=== PATIENT | female | born 1995 | race Caucasian/White ===

== ENCOUNTER 2023-05-11 12:38 | Outpatient (CLI) | payer OTHER, SELFPAY ==
--- NOTE | 2023-05-11 13:00 | US_ITS ---
Patient: REFUGIO LLANES Facility:?[facility] Patient ID:?[id number] Site Patient ID:?[id number]. Site :?[id number] Study:?US-OB Pelvis DATING AND VIABILITY-05/11/2023 1:12:24 PM Ordering Physician:?KYARA BERG Final Report: INDICATION: Dating and viability. LMP 03/15/2023. COMPARISON: None. TECHNIQUE: Real-time latham-scale imaging of the pelvis was performed. FINDINGS: Sonographic imaging demonstrates a single living intrauterine gestation. The embryo has a regular cardiac rate measuring 167 beats per minute. The embryo`s crown-rump length measures 1.6 cm which corresponds to a gestational age of 8 weeks 0 days with sonographic due date 12/21/2023. There is a normal-appearing yolk sac. The placenta has not yet developed. No evidence of a perigestational hemorrhage. The right ovary measures 3.8 x 2.0 x 3.2 cm and the left ovary measures 2.7 x 1.4 x 1.9 cm. Corpus luteal cyst in the right ovary. No free fluid in the pelvic cul-de-sac. IMPRESSION: 1. Single living intrauterine gestation corresponding to a gestational age of 8 weeks 0 days with sonographic due date 12/21/2023. 2. The clinical gestational age by LMP is 8 weeks 1 day. Dictated by Mariah Mtz MD @ 05/12/2023 2:26:56 AM Signed by:?Mariah Mtz MD @05/12/2023 2:26:56 AM (Electronic Signature)
== END 2023-05-11 12:39 | disposition home or self-care (01) ==
LOC: US 12:41
PROVIDERS: Visit Provider Advanced Practice Midwife
DX: Z34.91 Encounter for supervision of normal pregnancy, unspecified, first trimester (principal); Z3A.08 8 weeks gestation of pregnancy
CPT/HCPCS: 76817

== ENCOUNTER 2023-05-11 15:42 | Outpatient (CLI) | payer OTHER, SELFPAY | END 2023-05-11 15:43 | disposition home or self-care (01) | LOC: NFLDREF 05-15 13:04 | PROVIDERS: Visit Provider Advanced Practice Midwife | DX: Z34.91 Encounter for supervision of normal pregnancy, unspecified, first trimester (principal); Z3A.08 8 weeks gestation of pregnancy | CPT/HCPCS: 86592; 86703; 86704; 86706; 86762; 86787; 86803; 86850; 86900; 86901; 87086; 87340 ==

== ENCOUNTER 2023-06-04 11:24 | Outpatient (CLI) | payer BC, SELFPAY | END 2023-06-04 11:25 | disposition home or self-care (01) | LOC: NFLDREF 06-08 08:19 | PROVIDERS: Visit Provider Advanced Practice Midwife | DX: R30.0 Dysuria (principal) | CPT/HCPCS: 87086 ==

== ENCOUNTER 2023-08-04 07:58 | Outpatient (CLI) | payer BC, SELFPAY ==
--- NOTE | 2023-08-04 08:15 | CRLHL7_ITS ---
For Patients: As a result of the Century Cures Act, medical imaging exams and procedure reports are released immediately into your electronic medical record. You may view this report before your referring provider. If you have questions, please contact your health care provider. OB ULTRASOUND EMIGDIO by LMP: 12/20/2023. GA: 20 w, 2 d. INDICATION: Encounter for supervision of normal . COMPARISON: 05/11/2023. FINDINGS: position: Vertex. Cervix: Visualized. Technique: Transabdominal. Length of closed cervix: 4.0 cm. Placenta/cord: Posterior. Placenta tip to internal OS: 4.9 cm. Umbilical Cord: 3-vessel cord. Placenta insertion: Central. Amniotic Fluid: 4.6 cm SDP SURVEY: Observed Structures Cerebellum: Yes. 2.1 cm; 21 w 3 d. Cisterna Magna: Yes. 4.4 mm. Nuchal Fold: Yes. 4.4 mm. Lateral Ventricle: Yes. 5.3 mm. CSP: Yes. Midline Falx: Yes. Choroid Plexus: Yes. Spine: Yes. Stomach: Yes. Abd Cord Insertion: Yes. Urinary Bladder: Yes. Kidneys: Yes. Diaphragm: Yes. Nose/lips: Yes. Orbital view: Yes. Profile: Yes. Upper Extremities: Yes. Lower Extremities: Yes. Hands: Yes. Feet: Yes. Four-Chamber Heart: Yes. LVOT: Yes. RVOT: Yes. 3VV: Yes. 3VTV: Yes. BPD: 4.7 cm. 20 w 2 d, 50%. HC: 17.4 cm. 19 w 6 d, 24%. AC: 15.4 cm. 20 w 4 d, 54%. FL: 3.3 cm. 20 w 2 d, 43%. FL/AC: 21.40%. HC/AC Ratio: 1.13. Heart rate: 149 beats per minute. age by this US: 20 w 3 d. EMIGDIO by this US: 12/19/2023. EFW: 352 g. Weight: 12 oz. Percentile by EMIGDIO: 52%. IMPRESSION: 1. Measurements are consistent with dates. Good interval growth since prior exam. 2. Normal anatomic survey. Harsha White M.D. Body/Diagnostic Radiologist [email or web address] DEREK/radha garcia/Dictated by: Harsha White MD @ 08/05/2023 11:11:00 AM (Electronically Signed)
== END 2023-08-04 07:59 | disposition home or self-care (01) ==
LOC: US 07:59
PROVIDERS: Visit Provider Advanced Practice Midwife
DX: Z34.92 Encounter for supervision of normal pregnancy, unspecified, second trimester (principal); Z3A.20 20 weeks gestation of pregnancy
CPT/HCPCS: 76805

== ENCOUNTER 2023-09-01 12:25 | Outpatient (CLI) | payer BC, SELFPAY | END 2023-09-01 12:26 | disposition home or self-care (01) | LOC: NFLDREF 09-04 01:59 | PROVIDERS: Visit Provider Advanced Practice Midwife | DX: Z34.82 Encounter for supervision of other normal pregnancy, second trimester (principal); R82.998 Other abnormal findings in urine | CPT/HCPCS: 87086 ==

== ENCOUNTER 2023-09-02 14:38 | Outpatient (CLI) | payer BC, SELFPAY ==
[2023-09-02 14:44] VITALS: PULSE 79; O2SAT 100
[2023-09-02 14:47] VITALS: BP 110/66; PULSE 77
[2023-09-02 14:48] VITALS: TEMP 36.7
[2023-09-02] MEDS: LACTATED RINGERS 1000 ML 1,000 ML 925 ML IV (15:09)
[2023-09-02 16:05] LABS: Hematocrit 35.9 % (33.0-51.0); Mean Corpuscular HGB Conc 33 gm/dL (32-36); Mean Corpuscular Hemoglobin 31 pg (26-34); Mean Corpuscular Volume 94 fL (80-100); Platelet Count* 159 K/uL (140-440); Red Blood Count 3.82 m/uL (4.00-5.20); White Blood Count* 12.92 K/uL (4.50-11.00)
[2023-09-02 16:11] LABS: Slide Review Reflex No
[2023-09-02 16:20] LABS: Alanine Aminotransferase* 17 U/L (4-35); Aspartate Amino Transferase* 30 U/L (12-35); Blood Urea Nitrogen* 6 mg/dL (5-24); Creatinine* 0.5 mg/dL (0.5-1.5); Estimated Glomerular Filt Rate 131 ml/min
--- NOTE | 2023-09-02 17:24 | PM.OBLDTN ---
OB - Triage/Final Diagnosis Visit Information Date Seen: 09/02/23 Date of evaluation: 09/02/23 Narrative: The patient is a 28 year old 4 para 3003 at 24w3d weeks gestation by LMP confirmed by 1st trimester US, who presents with vague cramping, dizziness and back pain. She was in yesterday with complaints of diarrhea that resolved and questioning a UTI. Culture was negative, but dark urine was noted. She has not been eating or drinking much since. The back pain is inside her right scapula and does not seem worsened or better with position change. No worsening with respiration. The cramping is on and off and mild. She has had daily regular BM since diarrheal episodes this weekend. No vaginal bleeding or vaginitis symptoms. Dizziness is intermittent and related to position changes. She has not had any syncope. Previous full term births, but she did note that cramping occurred at this gestation with her last with no repercussions. She was taken off of work at this time with that last . She is here with Yosvany and was not able to report to work today. She is able to take PO fluids and food without problems. Evaluation Laboratory results: Laboratory Tests 09/02/23 Range/Units 16:02 WBC 12.92 H (4.50-11.00) K/uL RBC 3.82 L (4.00-5.20) m/uL Hgb 12.0 (12.0-16.0) gm/dL Hct 35.9 (33.0-51.0) % MCV 94 (80-100) fL MCH 31 (26-34) pg MCHC 33 (32-36) gm/dL Plt Count 159 (140-440) K/uL BUN 6 (5-24) mg/dL Creatinine 0.5 (0.5-1.5) mg/dL Estimated GFR 131 ml/min AST 30 (12-35) U/L ALT 17 (4-35) U/L Vital signs: Vital Signs - 24 hr 09/02/23 14:44 09/02/23 14:47 09/02/23 14:48 Temperature 98.1 F Pulse Rate 77 Blood Pressure 110/66 Pulse Oximetry 100 Comments: Vitals Reviewed Constitutional:? Alert and oriented x3 HEENT:? Normocephalic, atraumatic Neck:? Supple Back: localized tender area to palp and subcutaneous just medial to right scapula. No mass, but muscle tension in the area noted. Lungs:? Clear to auscultation bilaterally Heart:? Regular rate and rhythm, no murmur, rub or gallop Abdomen:? Soft, nontender, and gravid. Extremities:? No edema or erythema Cervix: 0 cm/Thick/High NST: 135 bpm/moderate variability/10x10 accelerations present and appropriate for gestational age/no decelerations/no contractions detected per toco or by palpation. A: 28yo 24w3d supervision of high risk due to history of Abdominal cramping in Lightheadedness Back pain in P: Reviewed normal labs, FHTs are reactive, no sign of labor, VSS. Enc hydration, nourishment and rest. Discharge Home. To call clinic tomorrow and schedule a follow up appt for next week. Encouraged pelvic rest for now. Gave work excuse to take this evening off. Will plan to rest today and tomorrow and return to work Thursday. Signs and symptoms to report reviewed. Final Diagnosis (1) Supervision of other high risk pregnancies, second trimester: Status: Acute (2) Dizziness: Status: Acute (3) Back pain affecting : Status: Acute (4) Abdominal pain affecting , antepartum: Status: Acute
--- NOTE | 2023-09-02 19:58 | PC.OBNST ---
NST Note NST Note Start: 09/02/23 14:53 Freq: ONCE Status: Active Protocol: Document 09/02/23 19:54 ZOROASTRIANISM (Rec: 09/02/23 19:57 ZOROASTRIANISM [id number]) NST Note 4 Para (# of births) 3 EDC 12/20/23 Gestational Age In Weeks & Days 24 Weeks & 3 Days Patient Presented with Complaint(s) of Contractions/cramping Reactive Yes Appropriate for Gestational Age Yes ETTA Guerra Date 09/02/23 Reactive Yes Appropriate for Gestational Age Yes ETTA Samuel Date 09/02/23 OB NST charge Yes Complete NST Note via Write Note Yes The provider's electronic signature indicates the NST is reactive/appropriate for gestational age. *Note to provider: If an addendum is required, open the patient's chart and click on the note under the Nurse/Allied Health tab.
== END 2023-09-02 18:20 | disposition home or self-care (01) ==
LOC: OB OUT 14:40 → OB 14:41
PROVIDERS: Visit Provider Midwife
DX: O47.02 False labor before 37 completed weeks of gestation, second trimester (principal); Z3A.24 24 weeks gestation of pregnancy
CPT/HCPCS: 36415; 59025; 82565; 84450; 84460; 84520; 85027; G0463; J7120

== ENCOUNTER 2023-09-27 19:07 | Outpatient (CLI) | payer BC, SELFPAY ==
[2023-09-27] VITALS (8 sets, daily range): BP systolic 119–124; BP diastolic 72–78; PULSE 82–96; RESP 20; TEMP 36.9; O2SAT 94–96
[2023-09-27 20:05] LABS: Amnisure Rom* Negative
[2023-09-27] MEDS: LACTATED RINGERS 1000 ML 1,000 ML IV (20:15)
[2023-09-27 20:19] LABS: Hematocrit 35.5 % (33.0-51.0); Hemoglobin* 12.1 gm/dL (12.0-16.0); Mean Corpuscular HGB Conc 34 gm/dL (32-36); Mean Corpuscular Hemoglobin 31 pg (26-34); Mean Corpuscular Volume 91 fL (80-100); Platelet Count* 161 K/uL (140-440); Red Blood Count 3.91 m/uL (4.00-5.20); White Blood Count* 11.15 K/uL (4.50-11.00)
[2023-09-27 20:24] LABS: Slide Review Reflex No
[2023-09-27] MEDS: LOPERAMIDE HCL 2 MG CAPSULE 4 MG PO (20:32)
[2023-09-27] MEDS: ACETAMINOPHEN 500 MG TABLET 1000 MG PO (20:32)
[2023-09-27 20:34] LABS: Alanine Aminotransferase* 18 U/L (4-35); Aspartate Amino Transferase* 26 U/L (12-35); Creatinine* 0.4 mg/dL (0.5-1.5); Estimated Glomerular Filt Rate 138 ml/min
[2023-09-27 20:35] LABS: Blood Urea Nitrogen* 2 mg/dL (5-24)
[2023-09-27 20:47] LABS: Total Protein Urine 13 mg/dL
[2023-09-27 20:48] LABS: Creatinine Urine 5.4 mg/dL; Protein Creatinine Ratio Urine 2.41 (0-0.19)
[2023-09-27 21:39] LABS: Appearance Urine Clear (Clear); Bilirubin Urine Negative (Negative); Blood Urine Negative (Negative); Color Urine Light yellow (Yellow); Glucose Urine Negative (Negative); Ketones Urine Negative (Negative); Leukocyte Esterase Urine Negative (Negative); Nitrite Urine Negative (Negative); Protein Urine Negative (Negative); Specific Gravity Urine <= 1.005 (1.000-1.030); Urobilinogen Urine 0.2 (0.2-1.0); pH Urine 6.5 (5.0-8.5)
--- NOTE | 2023-09-28 00:59 | PC.OBNST ---
NST Note NST Note Start: 09/27/23 18:03 Freq: ONCE Status: Active Protocol: Document 09/28/23 00:49 JUAN (Rec: 09/28/23 00:50 JUAN [id number]) NST Note 4 Para (# of births) 3 EDC 12/20/23 Gestational Age In Weeks & Days 28 Weeks & 1 Days Patient Presented with Complaint(s) of Other Other Complaints Diarrhea and right sided abdominal and rib pain. Appropriate for Gestational Age Yes ETTA Urban RN Date 09/27/23 Appropriate for Gestational Age Yes ETTA Patel RN Date 09/27/23 OB NST charge Yes Complete NST Note via Write Note Yes The provider's electronic signature indicates the NST is reactive/appropriate for gestational age. *Note to provider: If an addendum is required, open the patient's chart and click on the note under the Nurse/Allied Health tab.
== END 2023-09-28 01:00 | disposition home or self-care (01) ==
LOC: OB OUT 19:07 → OB 19:08
PROVIDERS: Visit Provider Advanced Practice Midwife
DX: O26.893 Other specified pregnancy related conditions, third trimester (principal); R19.7 Diarrhea, unspecified; R10.9 Unspecified abdominal pain; Z3A.28 28 weeks gestation of pregnancy
CPT/HCPCS: 36415; 59025; 81003; 82565; 82570; 84112; 84156; 84450; 84460; 84520; 85027; G0463; A9270; J7120

== ENCOUNTER 2023-09-29 11:21 | Outpatient (CLI) | payer BC, SELFPAY | END 2023-09-29 11:22 | disposition home or self-care (01) | PROVIDERS: Visit Provider Midwife | DX: O09.893 Supervision of other high risk pregnancies, third trimester (principal); Z3A.28 28 weeks gestation of pregnancy; Z67.41 Type O blood, Rh negative | CPT/HCPCS: 82570; 84156; 86592; 86850; J2791 ==

== ENCOUNTER 2023-10-26 12:00 | Outpatient (CLI) | payer BC, SELFPAY ==
[2023-10-26] VITALS (10 sets, daily range): BP systolic 109–118; BP diastolic 66–73; PULSE 73–85; RESP 16; TEMP 36.9; O2SAT 96–97
[2023-10-26 13:11] LABS: Hematocrit 38.4 % (33.0-51.0); Hemoglobin* 13.1 gm/dL (12.0-16.0); Mean Corpuscular HGB Conc 34 gm/dL (32-36); Mean Corpuscular Hemoglobin 31 pg (26-34); Mean Corpuscular Volume 91 fL (80-100); Platelet Count* 164 K/uL (140-440); Red Blood Count 4.24 m/uL (4.00-5.20); White Blood Count* 11.56 K/uL (4.50-11.00)
[2023-10-26 13:25] LABS: Appearance Urine Clear (Clear); Bilirubin Urine Negative (Negative); Blood Urine Negative (Negative); Color Urine Yellow (Yellow); Glucose Urine Negative (Negative); Ketones Urine Negative (Negative); Leukocyte Esterase Urine 1+ (Negative); Nitrite Urine Negative (Negative); Protein Urine Negative (Negative); Urobilinogen Urine 0.2 (0.2-1.0)
[2023-10-26 13:28] LABS: Alanine Aminotransferase* 32 U/L (4-35); Aspartate Amino Transferase* 31 U/L (12-35); Blood Urea Nitrogen* 5 mg/dL (5-24); Creatinine* 0.5 mg/dL (0.5-1.5); Estimated Glomerular Filt Rate 131 ml/min
[2023-10-26] MEDS: ACETAMINOPHEN 500 MG TABLET 1000 MG PO (13:33)
[2023-10-26 13:42] LABS: Slide Review Reflex No
[2023-10-26 13:55] LABS: Total Protein Urine 13 mg/dL
[2023-10-26 13:57] LABS: Creatinine Urine 38.4 mg/dL; Protein Creatinine Ratio Urine 0.34 (0-0.19)
--- NOTE | 2023-10-26 14:50 | P.OBLDTN_ITS ---
OB - Triage/Final Diagnosis Visit Information Date Seen: 10/26/23 Date of evaluation: 10/26/23 Narrative: The patient is a 28 year old 4 para 3 at 32 weeks and 1 day gestation, who presents with migraine x 2 days. She has tried tylenol, is well hydrated. S he has no chest pain, SOB, visual changes, other pain or illness symptoms. She has known proteinuria without HTN. She does have a history of allergies and has not taken any allergy medication. Problem list from care: #Anxiety and depression. On BuSpar. # Hx C/S with 1st delivery. x2 after. Desires again. OBGYN consult: Will forgo OB consult for since she has already had 2 successful ones and no other significant concerns this per last Women's Health meeting. # O-Rhogam at 28wks-given and PP. #Smoker. Working n cutting back. Encouraged Vit C. reports not smoking at 24 weeks # Asthma. Hasn't used inhaler in a few months. # Migraines w/o aura # Hx Chlamydia as a teen. Was tested at a different facility a few weeks prior to 1st visit. Negative per her report. Declines retest at [facility]. # Elevated P/C ratio of 2.41 at 28.0 weeks. Other labs normal 24 hr urine: WNL 0.08 O: See VS See labs NST reactive for gestational age No contractions A: Migraine in P: Pain decreased to 5/10 after support and Reglan administered. Encouraged Claritin use for prevention trial. Note given for work to rest this evening. Pt also revealed that she has been taking her albuterol for wheezing daily. Sometimes twice daily. She has lost her corticosteroid and has not taken it for 4-5 months. Encourage primary care visit tray for better asthma control. Pt and partner agree with plan and have no further questions. Discharge to home. Evaluation Laboratory results: Laboratory Tests 10/26/23 10/26/23 10/26/23 Range/Units 13:04 12:55 12:45 WBC 11.56 H (4.50-11.00) K/uL RBC 4.24 (4.00-5.20) m/uL Hgb 13.1 (12.0-16.0) gm/dL Hct 38.4 (33.0-51.0) % MCV 91 (80-100) fL MCH 31 (26-34) pg MCHC 34 (32-36) gm/dL Plt Count 164 (140-440) K/uL BUN 5 (5-24) mg/dL Creatinine 0.5 (0.5-1.5) mg/dL Estimated GFR 131 ml/min AST 31 (12-35) U/L ALT 32 (4-35) U/L Urine Color Yellow (Yellow) Urine Appearance Clear (Clear) Urine pH 7.0 (5.0-8.5) Ur Specific [place]ledge 1.010 (1.000-1.030) Urine Protein Negative (Negative) Urine Glucose (UA) Negative (Negative) Urine Ketones Negative (Negative) Urine Blood Negative (Negative) Urine Nitrite Negative (Negative) Urine Bilirubin Negative (Negative) Urine Urobilinogen 0.2 (0.2-1.0) Ur Leukocyte Esterase 1+ A (Negative) Urine RBC Pending Urine WBC Pending Ur Squamous Epith Cells Pending Urine Bacteria Pending Urine Creatinine 38.4 mg/dL Protein/Creatinin Ratio 0.34 H (0-0.19) Urine Total Protein 13 mg/dL Vital signs: Vital Signs - 24 hr 10/26/23 12:18 10/26/23 12:23 10/26/23 12:28 Temperature Pulse Rate 85 Respiratory Rate Blood Pressure 115/70 Pulse Oximetry 97 97 96 10/26/23 12:30 10/26/23 12:33 10/26/23 12:44 Temperature 98.5 F Pulse Rate 82 Respiratory Rate 16 Blood Pressure 109/66 Pulse Oximetry 96 10/26/23 12:59 10/26/23 13:14 10/26/23 13:29 Temperature Pulse Rate 85 73 76 Respiratory Rate Blood Pressure 113/69 112/69 112/67 Pulse Oximetry 10/26/23 13:45 Temperature Pulse Rate 83 Respiratory Rate Blood Pressure 118/73 Pulse Oximetry Final Diagnosis (1) : Status: Acute (2) Migraines: Status: Chronic Problem details: without aura Total Time Spent Total Time Spent: 30 min
[2023-10-26] MEDS: METOCLOPRAMIDE 10 MG TABLET PO (14:58)
--- NOTE | 2023-10-26 15:26 | PC.OBNST ---
NST Note NST Note Start: 10/26/23 12:11 Freq: ONCE Status: Active Protocol: Document 10/26/23 15:10 WK (Rec: 10/26/23 15:26 WK [id number]) NST Note 4 Para (# of births) 3 EDC 12/20/23 Gestational Age In Weeks & Days 32 Weeks & 1 Days Patient Presented with Complaint(s) of Headache Other Complaints Pt sent in from [facility] triage nurse for evaluation of VO for past 24 hrs. Pt has hx of migraines and has tried all of her regular migraine meds at home which have not helped. Reactive Yes RN Elvia RNC Date 10/26/23 Reactive Yes RN Precious RN OB NST charge Yes Complete NST Note via Write Note Yes The provider's electronic signature indicates the NST is reactive/appropriate for gestational age. *Note to provider: If an addendum is required, open the patient's chart and click on the note under the Nurse/Allied Health tab.
[2023-10-27 14:53] LABS: Bacteria Urine Many; RBC Urine 0-2 (0-2); Squamous Epithelial Cell Urine Many (None-Few)
== END 2023-10-26 15:10 | disposition home or self-care (01) ==
LOC: OB OUT 12:01 → OB 12:09
PROVIDERS: Visit Provider Midwife
DX: O26.893 Other specified pregnancy related conditions, third trimester (principal); G43.909 Migraine, unspecified, not intractable, without status migrainosus; Z3A.32 32 weeks gestation of pregnancy
CPT/HCPCS: 36415; 59025; 81001; 81003; 82565; 82570; 84156; 84450; 84460; 84520; 85027; 87086; G0463; A9270

== ENCOUNTER 2023-11-24 12:57 | Outpatient (CLI) | payer BC, SELFPAY ==
[2023-11-25 09:15] LABS: Strep B DNA Probe Negative (Negative)
[2023-11-25 09:17] LABS: Strep B Susceptibility Needed? No
== END 2023-11-24 12:58 | disposition home or self-care (01) ==
LOC: NFLDREF 12:57
PROVIDERS: PCP Family Medicine; Visit Provider Midwife
DX: Z34.93 Encounter for supervision of normal pregnancy, unspecified, third trimester (principal); Z3A.36 36 weeks gestation of pregnancy
CPT/HCPCS: 87081; 87653

== ENCOUNTER 2023-12-20 01:00 | Inpatient (IN) | payer BC, SELFPAY ==
[2023-12-20] VITALS (36 sets, daily range): BP systolic 108–164; BP diastolic 58–90; PULSE 71–109; RESP 16–18; TEMP 36.4–37.2; O2SAT 96–98; BMI 32.1
[2023-12-20 01:04] LABS: Amnisure Rom* Negative
[2023-12-20 01:34] LABS: Basophils Percent Auto 0.2 % (0.0-3.0); Eosinophils Percent Auto 1.7 % (0.0-7.0); Hematocrit 38.3 % (33.0-51.0); Lymphocytes Percent Auto 21.6 % (20-44); Mean Corpuscular HGB Conc 34 gm/dL (32-36); Mean Corpuscular Hemoglobin 30 pg (26-34); Mean Corpuscular Volume 89 fL (80-100); Monocytes Percent Auto 4.7 % (0.0-11.0); Neutrophils Percent Auto 70.8 % (42.0-72.0); Platelet Count* 269 K/uL (140-440); Red Blood Count 4.29 m/uL (4.00-5.20); White Blood Count* 19.29 K/uL (4.50-11.00)
--- NOTE | 2023-12-20 01:46 | W.PM.LDBA ---
Subjective History of Present Illness Date Seen: 12/20/23 Narrative: Patient is being admitted to Labor and Delivery for active labor. She is a 28 year old at 40.0 weeks gestation. Her full history and physical was dictated by Margaret Marin CNM on 12/01/23. Please see this for details. Bladimir has been cramping since this afternoon but started sixto regularly around 2300. She was found to be 6cm per RN exam on presentation. She desires an unmedicated but is open to an epidural as well. Specific Issues/Plans : Yosvany, Kids: 10 (his), 8 (hers), 5 & 2 (theirs) H&P by Margaret Marin CNM 12/01/23 #Anxiety and depression. On BuSpar. # Hx C/S with 1st delivery. x2 after. Desires again. OBGYN consult: Will forgo OB consult for since she has already had 2 successful ones and no other significant concerns this per last Women's Health meeting. # O-Rhogam at 28wks-given and PP. #Smoker. Working n cutting back. Encouraged Vit C. reports not smoking at 24 weeks # Asthma. Hasn't used inhaler in a few months. # Migraines w/o aura # Hx Chlamydia as a teen. Was tested at a different facility a few weeks prior to 1st visit. Negative per her report. Declines retest at [facility]. # Elevated P/C ratio of 2.41 at 28.0 weeks. Other labs normal 24 hr urine: WNL 0.08 TDAP: 10/13/23 Flu: declined Covid: declined RSV: 10/27/2023 OB - Problem Based A/P Additional Plan (1) Pain during labor: Status: Acute (2) Tobacco smoking affecting : Status: Acute (3) Patient desires vaginal after section (): Problem details: C/S in 2014, Successful x2. Status: Acute (4) Depression: Problem details: Also history PPD. Status: Chronic (5) Anxiety: Status: Acute (6) Hx successful (vaginal after ), currently : Status: Acute Plan ASSESSMENT:? at 40.0 weeks gestation? GBS negative? complicated by: Hx followed by 2 VBACs, desires TOLAC; anxiety and depression on Buspar; tobacco use? Blood type:?O- ? PLAN:? 1. Spontaneous labor at term. Desires TOLAC, OR and MD notified. 2. Candidate for analgesia of choice. Planning unmedicated .?Encouraged ambulation and position changes to encouraged physiologic labor and . 3. Anticipate ? 4. Expectant management at this time.? 5. IV in place and continuous monitoring per TOLAC policy. Delivery/Labor/Induction Plan Plan: expectant management OB Result Labs Blood Type: 0 (-) negative Rubella: immune RPR/VDLR: nonreactive GBS Status: negative HBsAG: negative OB Exam Physical Exam Vital signs: Pulse BP Pulse Ox 97 127/89 97 12/20/23 01:36 DONOR RELATIONS OFFICER 12/20/23 01:36 DONOR RELATIONS OFFICER 12/20/23 01:37 DONOR RELATIONS OFFICER Narrative: Psychiatric:? Alert and oriented x3? HEENT:? Normocephalic, atraumatic? Neck:? Supple without adenopathy or thyromegaly? Lungs:? Clear to auscultation bilaterally? Heart:? Regular rate and rhythm, no murmur, rub or gallop? Abdomen:? Soft, nontender, and gravid? Extremities:? No edema or erythema? Detailed Labor and Delivery Exam Patient Gravid: Yes Dilation (cm): 6 (per RN exam) Contraction Frequency: Q3-6 min Fetus (Single) Amniotic Membrane Status: intact Heart Rate Baseline: 120 Monitor Accelerations: Present Monitor Decelerations: None Group Home Variability: Moderate (6-25)
[2023-12-20 02:35] LABS: Slide Review Reflex No
[2023-12-20] MEDS: LACTATED RINGERS 1000 ML 1,000 ML 1100 ML IV (03:22)
[2023-12-20] MEDS: BUPIVACAINE 0.25% PF 10 ML 10 ML ML EPIDURAL (03:47)
[2023-12-20] MEDS: ROPIVACAINE 0.2% 100 ml 100 ML 12 MG EPIDURAL (03:56)
[2023-12-20] MEDS: OXYTOCIN 30 unit/500 ML in NS 30 UNIT/500 ML BAG 300 UNIT IVPB (07:44)
--- NOTE | 2023-12-20 08:02 | W.PM.OBVAGDE ---
Documented by User: Rere Jin MD 12/20/23 08:22 OB Procedure Vag Delivery Mother Details Mother Details: The patient is a 28 year-old, 4, Para 3, admitted on 12/20/23 at 40.0 Days gestation. : 4 Para: 4 Weeks Gestation: 40.0 Admission Date: 12/20/23 Additional Details Amniotic Membrane Status: SROM Amniotic Membrane Rupture Date: 12/20/23 Amniotic Membrane Rupture Time: 05:07 Amniotic Membrane Fluid Description: Clear Analgesia/Anesthesia Type: Epidural Waterbirth: No Pitcoin: Yes (AMTSL) Intrapartal Events: None Labor Onset: 02:50 Complete: 06:16 Pushin:11 Heart: heart tones during second stage were category 1. Baseline 115, + accels, -decels, moderate variability. Delivery Details Delivery Date: 12/20/23 Delivery Time: 07:43 Route of delivery: Gender: Male Infant Viability: Alive; Heart Rate Present Position at Delivery: OA Delivery Details: Delivered over [intact perineum] via [spontaneous] vaginal delivery. Infant was placed on maternal abdomen.? Cord was clamped and cut after a 30-60 second delay. Nose and mouth were bulb suctioned.? Infant weight pending. Event Summary Status: Mother and infant were stable after delivery. Documented by User: Gina Marin CNM 12/20/23 08:15 OB Procedure Vag Delivery Delivery Details Delivery Details: Bladimir was admitted for spontaneous labor and progressed normally. She received epidural analgesia that was effective. SROM noted at 0507 with clear fluid. Patient was complete at 0616 and pushing at 0611. Presumed complete with spontaneous pushing/pressure and confirmed after by the RN. of a viable male at 0743 on her back in the bed supported by her partenr and a friend. FOB did assist in catching the baby with hands over hands. Vertex delivered OA. No nuchal cord or shoulder. Body delivered easily and without incident. Infant passed to mothers abdomen with a vigorous cry. Cord was clamped and cut at > 5 minutes. APGARS were 8 at one minute and 8 at five minutes respectively. Mouth was bulb suctioned. Intact placenta with a 3 vessel cord delivered spontaneously at 0750. Fundus firm. Intact perineum identified. QBL 400 cc. Mother and baby stable; mother plans to breastfeed. weight pending.? 1 Minute Interval Total Score: 8 5 Minute Interval Total Score: 8 Additional Details Shoulder Dystocia: No Placenta Delivery Time: 07:50 Placental Delivery Description: Spontaneous Procedure Done: Global Blood Loss: 400 Laceration: None Episiotomy Description: None Blood Loss Measurement Type: QBL Bakri Used: No Sponge/Need Count Correct: Yes Cord Vessel Description: 3 Vessels Event Summary Disposition: floor
--- NOTE | 2023-12-20 08:42 | PM.ANPOST ---
Post Anesthesia Note Post Anesthesia Note Patient seen: Inpatient Respiratory Status: adequate Cardiovascular Status: adequate Mental Status: baseline Pain: adequate Temp: baseline Anesthetic awareness: N/A Complications: none Follow care: none
[2023-12-20] MEDS: IBUPROFEN 600 MG TABLET PO ×2 (11:31→20:17)
[2023-12-20] MEDS: ACETAMINOPHEN 500 MG TABLET 1000 MG PO ×2 (16:57→23:49)
[2023-12-20] MEDS: DOCUSATE SODIUM 100 MG CAPSULE PO (20:17)
[2023-12-20] MEDS: CALCIUM CARBONATE 500 MG CHEW PO (23:49)
[2023-12-21 04:09] VITALS: BP 119/77; PULSE 82; RESP 16; TEMP 36.7; O2SAT 97
--- NOTE | 2023-12-21 07:27 | P.DS_ITS ---
DS: Providers Provider Date Seen: 12/21/23 Date of admission: 12/20/23 01:00 PARTS INTERPRETER Primary care physician: Sandeep Rashid MD Admitting Clinician: Gina Marin CNM Attending Physician on discharge: Lexus Luciano CNM Date of Discharge: 12/21/23 DS: Diagnosis Discharge Diagnosis (1) care and examination immediately after delivery: Status: Acute (2) Lactating mother: Status: Acute (3) , delivered, current hospitalization: Status: Acute Exam Narrative: Exam Narrative: VSS, afebrile GENERAL APPEARANCE: ?normal affect, alert, no distress MOOD: ?appropriate HEENT: normocephalic, neck supple, full ROM CHEST: ?Symmetrical chest wall movement. ?Normal respiratory effort. ?Clear to auscultation HEART: ?regular rate and rhythm ABDOMEN: ?soft, non-tender. Uterine fundus is firm, u/1 Umbilicus, Midline and is appropriate for the stage of recovery. ?Bowel sounds present. PERINEUM: ?mild edema of the perineum, intact EXTREMITIES: ?normal and no edema Const: Vital Signs, click to edit/add: Vital Signs - 24 hr 12/20/23 07:32 12/20/23 07:44 12/20/23 07:59 Temperature Pulse Rate 97 97 95 Pulse Rate [Pulse Oximeter] Respiratory Rate Blood Pressure 132/75 164/81 H 126/69 Blood Pressure [Ri ght Arm] Pulse Oximetry Oxygen Delivery Me thod 12/20/23 08:14 12/20/23 08:29 12/20/23 08:43 Temperature Pulse Rate 87 77 79 Pulse Rate [Pulse Oximeter] Respiratory Rate Blood Pressure 128/81 122/78 122/77 Blood Pressure [Ri ght Arm] Pulse Oximetry Oxygen Delivery Me thod 12/20/23 09:02 12/20/23 09:14 12/20/23 09:28 Temperature Pulse Rate 71 77 76 Pulse Rate [Pulse Oximeter] Respiratory Rate Blood Pressure 113/75 118/78 111/76 Blood Pressure [Ri ght Arm] Pulse Oximetry Oxygen Delivery Me thod 12/20/23 09:43 12/20/23 11:33 12/20/23 17:35 Temperature 98.0 F 97.5 F L Pulse Rate 93 Pulse Rate [Pulse Oximeter] 80 71 Respiratory Rate 16 16 Blood Pressure 117/78 Blood Pressure [Ri ght Arm] 114/73 134/88 Pulse Oximetry 97 97 Oxygen Delivery Me thod Room Air Room Air 12/20/23 19:30 12/20/23 23:42 12/21/23 04:09 Temperature 99 F 98 F 98.1 F Pulse Rate Pulse Rate [Pulse Oximeter] 77 77 82 Respiratory Rate 16 18 16 Blood Pressure Blood Pressure [Ri ght Arm] 111/72 111/69 119/77 Pulse Oximetry 96 97 97 Oxygen Delivery Me thod Room Air Room Air Room Air Documenting provider has reviewed patient's vital signs: yes OB - DS: Summary Hospital Course Hospital Course: Bladimir is a 28 y.o. who was admitted to [facility] for labor. ?She had an uncomplicated .?The patient feels well. ?The pain is well controlled with current medications. ?She has no new complaints. ?She is breast feeding and reports things are going well.? the patient has done well.? Vitals have been stable.? She has remained afebrile.? Has a good appetite, is tolerating a general diet. ?She is voiding without difficulty.? She is passing gas and has not had a bowel movement.? She is ambulating and denies any dizziness.? Has Small amount of rubra lochia. 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 She reports some history fo anxiety immediately with last delivery and requests to restart Buspar. Peripartum Data Infant delivery method: Vaginal Laceration description: None [place] Gender: Male Discharge Plan: Home Status at Discharge Functional status at discharge: independent ambulation Overall status at discharge: patient is progressing back to baseline Time Spent with Patient Time attestation: Total time spent providing and/or coordinating discharge services: Time spent: Less than 30 minutes Discharge Plan Discharge Disposition: Home, Self-Care Date of Admission: 12/20/23 01:00 PARTS INTERPRETER Attending Provider on Discharge: Lexus Luciano Primary Care Provider: Sandeep Rashid Condition: Stable Anticipated Discharge Date/Time: 12/21/23 12:00 Discharge Medications: New docusate sodium 100 mg Capsule 100 mg PO DAILY Qty: 90 2RF ibuprofen 600 mg Tablet 600 mg PO Q6H PRNQty: 60 0RF buspirone 7.5 mg tablet 7.5 mg PO BID Qty: 60 2RF Continued Excedrin Tension Headache 500-65 mg tablet 1 tab PO Q12H PRN Arnuity Ellipta 100 mcg/actuation blister with device 1 inh inhalation Q24H Qty: 30 3RF albuterol sulfate 90 mcg/actuation HFA aerosol inhaler 2 puff INHALATION Q4H PRN (Reason: shortness of breath or wheezing) Qty: 8.5 5RF acetaminophen [Tylenol Extra Strength] 500 mg tablet 500 mg PO Q6H PRN PNV 119-iron fum-folic acid 29 mg iron- 1 mg tablet 1 tab PO DAILY PRN Discharge Orders: Discharge Order (Routine); Ordered 12/21/23 Ordered By: Lexus Luciano Patient Education: OB Over the Counter Medication Information, OB Vaginal/Breast Feeding Additional Instructions: Discharge instructions were reviewed with the patient including signs and symptoms of infection and home going medications Nothing vaginally for 6 weeks: no tampons or intercourse Off Work or School for 6 weeks Symptoms to report to doctor: * Bleeding that saturates more than one pad per hour * Passing clots larger than the size of a golf ball * Pain not relieved by prescribed medication * Fever above 100.4 degrees Fahrenheit * A foul vaginal odor * Difficulty in emotions, mood, and functions * Thoughts of hurting yourself and/or * Painful, reddened area in your breast * Any drainage, redness, or tenderness in your IV/epidural site * Severe headache that doesn't improve after taking medications * Changes in vision, including temporary loss of vision, blurred vision, and/or light sensitivity * Upper abdominal pain (usually under ribs on the right side) * Decrease in urination or painful, frequent urinating * Chest pain * Shortness of breath * Tenderness or pain with redness and/swelling in the calf(s) of your leg 2-week visit: discuss feeding concerns, review control options and screen for anxiety/depression. 6-week visit for an annual exam. consultation services are available to all mothers and babies for the first year after delivery.? To make an appointment, please call [phone]. Activity Level: Activity as Tolerated Discharge Diet: Regular Follow Up Appointments: [facility] [Provider Group] [facility] Info Instructions
[2023-12-21 08:00] VITALS: BP 113/72; PULSE 86; RESP 16; TEMP 37; O2SAT 97
[2023-12-21] MEDS: LANOLIN CREAM 1 APPLIC TOPICAL (08:02)
[2023-12-21] MEDS: DOCUSATE SODIUM 100 MG CAPSULE PO (08:02)
[2023-12-21] MEDS: IBUPROFEN 600 MG TABLET PO (08:02)
[2023-12-22 14:12] LABS: Rapid Plasma Reagin (RPR) Non Reactive (Non Reactive)
--- NOTE | 2023-12-28 09:39 | PM.ANBPRC ---
[facility] Medical History (Updated 12/23/23 @ 00:00 by Background Daemon) Tobacco smoking affecting ?O99.330 - Smoking (tobacco) complicating , unspecified trimester (ICD-10) Anxiety ?F41.9 - Anxiety disorder, unspecified (ICD-10) Migraines ?G43.909 - Migraine, unspecified, not intractable, without status migrainosus (ICD-10) Asthma ?J45.909 - Unspecified asthma, uncomplicated (ICD-10) Depression ?F32.A - Depression, unspecified (ICD-10) Hx of chlamydia infection ?Z86.19 - Personal history of other infectious and parasitic diseases (ICD-10) Gallbladder & bile duct stone with obstruction ?K80.71 - Calculus of gallbladder and bile duct without cholecystitis with obstruction (ICD-10) History of vaginal delivery Surgical History (Updated 12/23/23 @ 00:00 by Background Daemon) History of appendectomy ?Z90.49 - Acquired absence of other specified parts of digestive tract (ICD-10) History of section (11/19/14) ?Z98.891 - History of uterine scar from previous surgery (ICD-10) Family History Sister Diabetes, Onset Age: 3 Preeclampsia Maternal Grandfather Heart disease Mother Cervical cancer Maternal Grandmother Kidney disease Social History Narrative: SOCIAL Education: some college, 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 She has used BuSpar in the past and it worked well for her. With shared decision making and discussing risks, benefits, and research in she would like to restart her medication. Discussed adding therapy as well but she declines. DICK: 10 PHQ 9: 9 Seat Belt Use: Routinely Smoking: yes down to less than 5 per day and working on reducing more. Alcohol/day: Denies while , rare before Caffeine: 1-2 per day Drug Use: Denies past/present Chicken Pox: immunized MRSA: Denies What is your current living situation?: I presently have a place to live Problems where you live: no known problems In the past 12 months, utilities in danger of being shut off: no In past 12 months, lack of transportation kept you from medical appts, meetings, work, or getting things needed for daily living: no In the past 12 mos, have been you worried that your food would run out before you had money to buy more?: never true In the past 12 mos, the food you bought just didn't last and you didn't have money to buy more?: never true Smoking Status: Current every day smoker How often does anyone, including family, friends and others, physically hurt you: never How often does anyone, including family, friends and others, insult or talk down to you: never How often does anyone, including family, friends and others, threaten you with harm: never How often does anyone, including family, friends and others, scream or curse at you: never Little interest or pleasure in doing things: not at all Feeling down, depressed, or hopeless: not at all Meds Home Medications and Allergies Home Medications ?Medication ?Instructions ?Recorded ?Confirmed ?Type acetaminophen 500 mg tablet 500 mg PO Q6H PRN 05/11/23 12/20/23 History (Tylenol Extra Strength) vitamins no.119-iron 1 tab PO DAILY PRN 05/11/23 12/20/23 History fumarate 29 mg-folic acid 1 mg tablet acetaminophen-caffeine 500 mg-65 1 tab PO Q12H PRN 06/04/23 12/18/23 History mg tablet (Excedrin Tension Headache) Allergies Allergy/AdvReac Type Severity Reaction Status Date / Time No Known Drug Allergies Allergy Verified 12/15/23 11:56 Results Vital Signs Vital Signs: Last Vital Signs Temp 98.6 F 12/21/23 08:00 Pulse 86 12/21/23 08:00 Resp 16 12/21/23 08:00 BP 113/72 12/21/23 08:00 Pulse Ox 97 12/21/23 08:00 O2 Del Method Room Air 12/21/23 08:00 Weight: 84.867 kg Height: 162.56 cm Anesthesia Procedures Epidural Insertion Patient Location: OB Start Time: 02:45 Stop Time: 03:15 Start Date: 12/20/23 Stop Date: 12/20/23 Reason for Block: procedure for pain Patient Position: sitting Performed By: Anthony Clark Preanesthetic Checklist: IV checked, risks and benefits discussed, monitors and equipment checked, pre-op evaluation, timeout performed and anesthesia consent Prep: chlorhexidine gluconate Monitoring: blood pressure monitoring, continuous pulse oximetry and heart rate Approach: midline Vertebral Space: lumbar (1-5) Epidural Technique: AJAY saline Needle Type: Tuohy needle Injection Technique: continuous catheter Needle gauge: 17 Needle Length (cm): 10 cm Needle Insertion Depth (cm): 6 Catheter Gauge: 19 Catheter Type: multi-orifice Catheter at skin depth (cm): 12 Test Dose Result: negative and lidocaine 1.5% with epinephrine 1 to 200,000
== END 2023-12-21 12:55 | disposition home or self-care (01) | DRG 560 ==
LOC: OB OUT 01:00 → OB 01:00 → OB OUT 01:15 → OB 01:16
PROVIDERS: Admitting Provider Advanced Practice Midwife; PCP Family Medicine; Visit Provider Advanced Practice Midwife
DX: O34.219 Maternal care for unspecified type scar from previous cesarean delivery (principal); O99.344 Other mental disorders complicating childbirth; F41.9 Anxiety disorder, unspecified; F32.A Depression, unspecified; O99.334 Smoking (tobacco) complicating childbirth; F17.210 Nicotine dependence, cigarettes, uncomplicated; O26.893 Other specified pregnancy related conditions, third trimester; Z67.41 Type O blood, Rh negative; J45.909 Unspecified asthma, uncomplicated; Z37.0 Single live birth; Z3A.40 40 weeks gestation of pregnancy
CPT/HCPCS: 01967; 36415; 59025; 76815; 84112; 85025; 85461; 86592; 86850; 86870; 86880; 86900; 86901; G0463; A9270; J0665; J2371; J2791; J2795; J7120

== ENCOUNTER 2024-02-01 09:39 | Outpatient (CLI) | payer BC, SELFPAY ==
[2024-02-03 14:18] LABS: HPV Source Cervical; HPV, High Risk by TMA Not Detected
== END 2024-02-01 09:40 | disposition home or self-care (01) ==
PROVIDERS: PCP Family Medicine; Visit Provider Advanced Practice Midwife
DX: Z12.4 Encounter for screening for malignant neoplasm of cervix (principal); Z11.51 Encounter for screening for human papillomavirus (HPV)
CPT/HCPCS: 87624; 87625; 88141; 88142

== ENCOUNTER 2024-07-27 09:40 | Outpatient (CLI) | payer BC, SELFPAY ==
[2024-07-27 12:30] LABS: Chlamydia DNA Amplified* NOT DETECTED (No Detected); GC DNA Amplified* NOT DETECTED (No Detected)
== END 2024-07-27 09:41 | disposition home or self-care (01) ==
LOC: NFLDREF 09:40
PROVIDERS: PCP Family Medicine; Visit Provider Family Medicine
DX: N89.8 Other specified noninflammatory disorders of vagina (principal); Z11.3 Encounter for screening for infections with a predominantly sexual mode of transmission
CPT/HCPCS: 87491; 87591